=== PATIENT | male | born 1960 | race Caucasian/White ===

== ENCOUNTER 2018-01-25 16:13 | Inpatient (IN) | payer OTHER ==
[2018-01-25] MEDS ORDERED: ACETAMINOPHEN TAB 650MG DOSE (2X325MG) PO (16:30)
[2018-01-25] MEDS ORDERED: GLUCOSE 4 GM CHEW TABLET PO (17:15)
[2018-01-25] MEDS ORDERED: VANCOMYCIN HCL 750 MG, VIAL MATE ADAPTER 1 EACH in D5W 250 ML IV (17:15)
[2018-01-25] MEDS ORDERED: DEXTROSE 50% 50 ML SYRINGE IV (17:15)
[2018-01-25] MEDS ORDERED: GLUCAGON FOR INJ 1 MG VIAL (J1610) SC (17:15)
[2018-01-25] MEDS ORDERED: ALBUTEROL 90 MCG/ACT 8GM HFA INHALER INH (17:15)
[2018-01-25 17:21] LABS: ABG BASE EXCESS -0.7 (-2.0-2.0); ABG O2 SATURATION 95.8 % (95.0-99.0); ABG PARTIAL PRESSURE CO2 50.6 mmHg (35.0-45.0); ABG PARTIAL PRESSURE O2 85.3 mmHg (75.0-100.0); ABG STANDARD HCO3 23.9 MEQ/L (22.0-26.0); ABG TOTAL CO2 27.6 MEQ/L (22.0-29.0); ABG pH (ARTERIAL) 7.329 UNITS (7.350-7.450)
[2018-01-25 17:43] LABS: BASO % 0.1 % (0.0-1.0); EOS % 0.1 % (0.0-3.0); HEMATOCRIT 46.6 % (42.0-52.0); HEMOGLOBIN 15.2 g/dl (13.5-17.5); IMMATURE GRANULOCYTE % 1.4 % (0-3.0); LYMPH # 0.8 10^3/uL (1.5-4.5); LYMPH % 3.3 % (24.0-44.0); MEAN CORPUSCULAR HEMOGLOBIN 28.5 pg (27.0-33.0); MEAN CORPUSCULAR HGB CONC 32.6 g/dl (32.0-36.5); MEAN CORPUSCULAR VOLUME 87.3 fl (80.0-96.0); MONO % 8.8 % (0.0-5.0); NEUTROPHILS # 22.2 10^3/uL (1.8-7.7); NEUTROPHILS % 86.3 % (36.0-66.0); PLATELET COUNT, AUTOMATED 225 10^3/uL (150-450); RED BLOOD COUNT 5.34 10^6/uL (4.30-6.10); RED CELL DISTRIBUTION WIDTH 15.4 % (11.5-14.5); WHITE BLOOD COUNT 25.7 10^3/uL (4.0-10.0)
[2018-01-25] MEDS: VANCOMYCIN HCL 1,000 MG, VIAL MATE ADAPTER 1 EACH in D5W 250 ML IV ×2 (17:47→22:25)
[2018-01-25] MEDS: FUROSEMIDE 40 MG/4 ML VIAL (J1940) IV (17:47)
[2018-01-25 17:52] LABS: BEDSIDE GLUCOSE 158 MG/DL (70-105)
[2018-01-25 18:03] LABS: ESTIMATED AVERAGE GLUCOSE 105 MG/DL (60-110); HEMOGLOBIN A1c 5.3 %
[2018-01-25] MEDS: HumaLOG INSULIN (NovoLOG) PER UNIT SC ×2 (18:03→20:13)
[2018-01-25 18:08] LABS: LACTIC ACID SEPSIS PROTOCOL 1.2 MMOL/L (0.4-2.0)
[2018-01-25 18:11] LABS: ALBUMIN 2.1 GM/DL (3.2-5.2); ALKALINE PHOSPHATASE 89 U/L (45-117); ALT/SGPT 12 U/L (12-78); AST/SGOT 12 U/L (7-37); BILIRUBIN,TOTAL 1.2 MG/DL (0.2-1.0); BLOOD UREA NITROGEN 20 MG/DL (7-18); CALCIUM LEVEL 8.1 MG/DL (8.5-10.1); CARBON DIOXIDE LEVEL 27 MEQ/L (21-32); CHLORIDE LEVEL 103 MEQ/L (98-107); CPK CREATINE PHOSPHOKINASE 51 U/L (39-308); CREATININE FOR GFR 1.47 MG/DL (0.70-1.30); GLUCOSE, FASTING 149 MG/DL (70-100); LDH LACTATE DEHYDROGENASE 184 U/L (87-241); MAGNESIUM LEVEL 1.7 MG/DL (1.8-2.4); POTASSIUM SERUM 4.7 MEQ/L (3.5-5.1); SODIUM LEVEL 137 MEQ/L (136-145); TOTAL PROTEIN 5.6 GM/DL (6.4-8.2); TROPONIN I 0.04 NG/ML (< 0.10)
[2018-01-25 18:14] LABS: CK-MB VALUE MASS 1.6 NG/ML (<3.6); MB/CK RELATIVE INDEX 3.13 (< OR =4); NT-PRO BNP 24597 PG/ML (<125)
[2018-01-25 18:20] LABS: INR 1.31; PROTHROMBIN TIME 16.5 SECONDS (12.1-14.4)
[2018-01-25 18:24] LABS: MONO # 2.3 10^3/uL (0.0-0.8); POSITIVE DIFF POS FLAG
[2018-01-25 19:13] LABS: ANION GAP 7 MEQ/L (8-16)
[2018-01-25] MEDS ORDERED: MAG SULF 1GM/100ML (MAG RUN) 1 GM in APPROPRIATE DILUENT 1 EA IV (19:15)
[2018-01-25] MEDS: IPRATROPIUM 0.5MG/ALBUTEROL 2.5MG INH SOL UD 3ML (DUONEB)(J7620) INH (19:21)
[2018-01-25] MEDS ORDERED: MIDAZOLAM INJ 2 MG/2 ML VIAL (J2250) As Ordered ×3 (19:26→19:27)
[2018-01-25] MEDS ORDERED: FLUMAZENIL 0.5 MG/5 ML VIAL As Ordered (19:26)
[2018-01-25] MEDS ORDERED: LIDOCAINE 1% MDV 20ML VIAL As Ordered ×2 (19:27→20:48)
[2018-01-25] MEDS: CEFEPIME HCL 2 GM in D5W MINI-BAG PLUS 50 ML IV (20:09)
[2018-01-25] MEDS: GABAPENTIN 300 MG CAP PO (20:09)
[2018-01-25] MEDS: NYSTATIN 100,000 UNITS/GM TOPICAL PWD 15 GM TOP (20:10)
[2018-01-25] MEDS: CARVedilol 3.125 MG TAB PO (20:10)
[2018-01-25] MEDS: ENOXAPARIN 150 MG/ML SYR (J1650) SC (20:13)
[2018-01-25 20:15] LABS: BEDSIDE GLUCOSE 172 MG/DL (70-105)
[2018-01-25] MEDS: MAG SULF 1GM/100ML (MAG RUN) 1 GM in APPROPRIATE DILUENT 1 EA IV (20:19)
[2018-01-25] MEDS: LIDOCAINE 1% MDV 20ML VIAL SC (20:50)
[2018-01-25] MEDS: MIDAZOLAM INJ 2 MG/2 ML VIAL (J2250) IV (20:50)
[2018-01-25 21:53] LABS: PH BODY FLUID 7.368 UNITS (NOT ESTABLISHED); SOURCE, BODY FLUID pH PLEURAL
[2018-01-25 21:54] LABS: RBC BODY FLUID 3 10^3/uL (<2)
[2018-01-25 22:04] LABS: APPEARANCE, BODY FLUID HAZY (CLEAR); PLEURAL FL COLOR PALE YELLOW (COLORLESS); SOURCE, BODY FLUID PLEURAL; WBC BODY FLUID 12700 /uL (0-10)
[2018-01-25 22:05] LABS: BF DIFF IF INDICATED? YES (NO); BF MONONUCLEAR CELL % 6.1 % (0-0); BF POLYMORPHONUCLEAR CELL % 93.9 % (0-0)
[2018-01-25 22:33] LABS: AMYLASE, BODY FLUID 15 U/L (NOT ESTABLISHED); CHOLESTEROL, BODY FLUID < 50 MG/DL (NOT ESTABLISHED); LDH, BODY FLUID 279 U/L (NOT ESTABLISHED); SOURCE, BODY FLUID ALBUMIN PLEURAL; SOURCE, BODY FLUID AMYLASE PLEURAL; SOURCE, BODY FLUID CHOL PLEURAL; SOURCE, BODY FLUID GLUCOSE PLEURAL; SOURCE, BODY FLUID LDH PLEURAL; SOURCE, BODY FLUID TOT PROTEIN PLEURAL; SOURCE, BODY FLUID TRIG PLEURAL; TOTAL PROTEIN, BODY FLUID 1.8 G/DL (NOT ESTABLISHED); TRIGLYCERIDE, BODY FLUID 17 MG/DL (NOT ESTABLISHED)
[2018-01-26 00:36] LABS: CPK CREATINE PHOSPHOKINASE 33 U/L (39-308); TROPONIN I 0.04 NG/ML (< 0.10)
[2018-01-26] MEDS: FUROSEMIDE 40 MG/4 ML VIAL (J1940) IV ×4 (00:36→17:31)
[2018-01-26 00:37] LABS: CK-MB VALUE MASS 1.1 NG/ML (<3.6); MB/CK RELATIVE INDEX 3.33 (< OR =4)
[2018-01-26 04:21] LABS: HEMATOCRIT 43.8 % (42.0-52.0); HEMOGLOBIN 14.5 g/dl (13.5-17.5); MEAN CORPUSCULAR HEMOGLOBIN 28.8 pg (27.0-33.0); MEAN CORPUSCULAR HGB CONC 33.1 g/dl (32.0-36.5); MEAN CORPUSCULAR VOLUME 87.1 fl (80.0-96.0); PLATELET COUNT, AUTOMATED 157 10^3/uL (150-450); RED BLOOD COUNT 5.03 10^6/uL (4.30-6.10); RED CELL DISTRIBUTION WIDTH 15.1 % (11.5-14.5); WHITE BLOOD COUNT 19.5 10^3/uL (4.0-10.0)
[2018-01-26 04:52] LABS: ALBUMIN 1.8 GM/DL (3.2-5.2); ALBUMIN/GLOBULIN RATIO 0.46 (1.00-1.93); ALKALINE PHOSPHATASE 67 U/L (45-117); ALT/SGPT 11 U/L (12-78); ANION GAP 7 MEQ/L (8-16); AST/SGOT 14 U/L (7-37); BILIRUBIN,TOTAL 1.1 MG/DL (0.2-1.0); BLOOD UREA NITROGEN 20 MG/DL (7-18); CALCIUM LEVEL 8.1 MG/DL (8.5-10.1); CARBON DIOXIDE LEVEL 27 MEQ/L (21-32); CHLORIDE LEVEL 103 MEQ/L (98-107); CREATININE FOR GFR 1.33 MG/DL (0.70-1.30); GLOMERULAR FILTRATION RATE 58.8 (>56); GLUCOSE, FASTING 136 MG/DL (70-100); POTASSIUM SERUM 4.5 MEQ/L (3.5-5.1); SODIUM LEVEL 137 MEQ/L (136-145); TOTAL PROTEIN 5.7 GM/DL (6.4-8.2)
[2018-01-26] MEDS: PERCOCET 5MG/325MG TAB PO ×3 (04:59→15:14)
[2018-01-26] MEDS: VANCOMYCIN HCL 1,000 MG, VIAL MATE ADAPTER 1 EACH in D5W 250 ML IV ×3 (05:58→22:00)
[2018-01-26] MEDS: HumaLOG INSULIN (NovoLOG) PER UNIT SC ×4 (07:38→20:13)
[2018-01-26] MEDS: CEFEPIME HCL 2 GM in D5W MINI-BAG PLUS 50 ML IV ×2 (07:38→20:19)
[2018-01-26] MEDS ORDERED: SLF 3 ML SYR IV (08:00)
[2018-01-26 08:57] LABS: CK-MB VALUE MASS 1.9 NG/ML (<3.6); CPK CREATINE PHOSPHOKINASE 40 U/L (39-308); MB/CK RELATIVE INDEX 4.75 (< OR =4); TROPONIN I 0.03 NG/ML (< 0.10)
[2018-01-26] MEDS ORDERED: RIVAROXABAN 20 MG TAB (XARELTO) PO (09:00)
[2018-01-26] MEDS ORDERED: ENOXAPARIN 150 MG/ML SYR (J1650) SC (09:00)
[2018-01-26] MEDS: CARVedilol 3.125 MG TAB PO ×2 (09:36→20:19)
[2018-01-26] MEDS: GABAPENTIN 300 MG CAP PO ×2 (09:36→20:19)
[2018-01-26] MEDS: LISINOPRIL *2.5 MG* TAB PO (09:37)
[2018-01-26] MEDS: NYSTATIN 100,000 UNITS/GM TOPICAL PWD 15 GM TOP ×2 (09:38→20:20)
[2018-01-26 12:06] LABS: BEDSIDE GLUCOSE 169 MG/DL (70-105)
[2018-01-26 14:08] LABS: VANCOMYCIN LEVEL TROUGH 15.4 UG/ML (10.0-20.0)
[2018-01-26] MEDS: SLF 3 ML SYR IV ×2 (14:17→20:20)
[2018-01-26 17:10] LABS: BEDSIDE GLUCOSE 138 MG/DL (70-105)
[2018-01-26] MEDS: RIVAROXABAN 20 MG TAB (XARELTO) PO (17:36)
[2018-01-26 19:37] LABS: ABG BASE EXCESS -2.1 (-2.0-2.0); ABG HCO3 25.8 MEQ/L (22.0-26.0); ABG O2 SATURATION 95.8 % (95.0-99.0); ABG PARTIAL PRESSURE CO2 57.7 mmHg (35.0-45.0); ABG PARTIAL PRESSURE O2 84.7 mmHg (75.0-100.0); ABG STANDARD HCO3 22.7 MEQ/L (22.0-26.0); ABG TOTAL CO2 27.6 MEQ/L (22.0-29.0); ABG pH (ARTERIAL) 7.268 UNITS (7.350-7.450)
[2018-01-26 20:00] LABS: BEDSIDE GLUCOSE 152 MG/DL (70-105)
[2018-01-27] MEDS: FUROSEMIDE 40 MG/4 ML VIAL (J1940) IV ×2 (00:23→06:10)
[2018-01-27 04:28] LABS: HEMATOCRIT 43.6 % (42.0-52.0); HEMOGLOBIN 13.5 g/dl (13.5-17.5); MEAN CORPUSCULAR HEMOGLOBIN 28.3 pg (27.0-33.0); MEAN CORPUSCULAR VOLUME 91.4 fl (80.0-96.0); PLATELET COUNT, AUTOMATED 205 10^3/uL (150-450); RED BLOOD COUNT 4.77 10^6/uL (4.30-6.10); RED CELL DISTRIBUTION WIDTH 15.2 % (11.5-14.5); WHITE BLOOD COUNT 14.9 10^3/uL (4.0-10.0)
[2018-01-27 04:49] LABS: ALBUMIN 1.7 GM/DL (3.2-5.2); ALBUMIN/GLOBULIN RATIO 0.43 (1.00-1.93); ALKALINE PHOSPHATASE 75 U/L (45-117); ALT/SGPT 11 U/L (12-78); ANION GAP 6 MEQ/L (8-16); AST/SGOT 10 U/L (7-37); BILIRUBIN,TOTAL 0.6 MG/DL (0.2-1.0); CARBON DIOXIDE LEVEL 30 MEQ/L (21-32); CHLORIDE LEVEL 101 MEQ/L (98-107); CREATININE FOR GFR 1.99 MG/DL (0.70-1.30); GLOMERULAR FILTRATION RATE 36.9 (>56); GLUCOSE, FASTING 139 MG/DL (70-100); MAGNESIUM LEVEL 1.9 MG/DL (1.8-2.4); POTASSIUM SERUM 4.5 MEQ/L (3.5-5.1); SODIUM LEVEL 137 MEQ/L (136-145); TOTAL PROTEIN 5.7 GM/DL (6.4-8.2)
[2018-01-27 04:58] LABS: BLOOD UREA NITROGEN 33 MG/DL (7-18)
[2018-01-27] MEDS: VANCOMYCIN HCL 1,000 MG, VIAL MATE ADAPTER 1 EACH in D5W 250 ML IV ×3 (06:10→20:32)
[2018-01-27] MEDS: SLF 3 ML SYR IV ×3 (06:10→20:32)
[2018-01-27] MEDS: PERCOCET 5MG/325MG TAB PO ×4 (06:17→23:42)
[2018-01-27] MEDS: ALTEPLASE 2 MG/2 ML VIAL (J2997 PER 1MG) XX (08:02)
[2018-01-27 08:41] LABS: BEDSIDE GLUCOSE 218 MG/DL (70-105)
[2018-01-27] MEDS: GABAPENTIN 300 MG CAP PO ×2 (09:33→20:31)
[2018-01-27] MEDS: HumaLOG INSULIN (NovoLOG) PER UNIT SC ×4 (09:33→20:31)
[2018-01-27] MEDS: NYSTATIN 100,000 UNITS/GM TOPICAL PWD 15 GM TOP ×2 (09:34→20:32)
[2018-01-27] MEDS: CARVedilol 3.125 MG TAB PO ×2 (09:34→20:30)
[2018-01-27 12:21] LABS: BEDSIDE GLUCOSE 143 MG/DL (70-105)
[2018-01-27 15:25] LABS: ABG DEVICE NASAL CANN; ABG HCO3 24.3 MEQ/L (22.0-26.0); ABG O2 SATURATION 94.3 % (95.0-99.0); ABG STANDARD HCO3 20.3 MEQ/L (22.0-26.0); ABG TOTAL CO2 26.2 MEQ/L (22.0-29.0)
[2018-01-27 15:28] LABS: ABG pH (ARTERIAL) 7.197 UNITS (7.350-7.450)
[2018-01-27] MEDS: IPRATROPIUM 0.5MG/ALBUTEROL 2.5MG INH SOL UD 3ML (DUONEB)(J7620) INH ×2 (16:00→19:06)
[2018-01-27 16:46] LABS: ABG BASE EXCESS -2.6 (-2.0-2.0); ABG HCO3 25.7 MEQ/L (22.0-26.0); ABG O2 SATURATION 93.9 % (95.0-99.0); ABG PARTIAL PRESSURE CO2 60.2 mmHg (35.0-45.0); ABG PARTIAL PRESSURE O2 73.3 mmHg (75.0-100.0); ABG STANDARD HCO3 22.2 MEQ/L (22.0-26.0); ABG TOTAL CO2 27.5 MEQ/L (22.0-29.0)
[2018-01-27 16:48] LABS: ABG pH (ARTERIAL) 7.248 UNITS (7.350-7.450)
[2018-01-27] MEDS: NS 500 ML IV (16:53)
[2018-01-27] MEDS: NS 1,000 ML IV (17:29)
[2018-01-27 17:34] LABS: BEDSIDE GLUCOSE 173 MG/DL (70-105)
[2018-01-27] MEDS: RIVAROXABAN 20 MG TAB (XARELTO) PO (17:36)
[2018-01-27 20:30] LABS: BEDSIDE GLUCOSE 123 MG/DL (70-105)
[2018-01-27] MEDS: CEFEPIME HCL 2 GM in D5W MINI-BAG PLUS 50 ML IV (20:30)
[2018-01-27 21:54] LABS: VANCOMYCIN LEVEL TROUGH 39.4 UG/ML (10.0-20.0)
[2018-01-28] MEDS: IPRATROPIUM 0.5MG/ALBUTEROL 2.5MG INH SOL UD 3ML (DUONEB)(J7620) INH ×7 (00:04→23:46)
[2018-01-28] MEDS: NS 1,000 ML IV (02:45)
[2018-01-28] MEDS: PERCOCET 5MG/325MG TAB PO ×2 (04:41→23:49)
[2018-01-28 04:46] LABS: BASO % 0.2 % (0.0-1.0); EOS # 0.2 10^3/uL (0.0-0.50); EOS % 2.3 % (0.0-3.0); HEMATOCRIT 42.7 % (42.0-52.0); HEMOGLOBIN 13.5 g/dl (13.5-17.5); IMMATURE GRANULOCYTE % 0.4 % (0-3.0); LYMPH # 0.6 10^3/uL (1.5-4.5); LYMPH % 7.6 % (24.0-44.0); MEAN CORPUSCULAR HGB CONC 31.6 g/dl (32.0-36.5); MEAN CORPUSCULAR VOLUME 88.6 fl (80.0-96.0); MONO % 12.1 % (0.0-5.0); NEUTROPHILS # 6.5 10^3/uL (1.8-7.7); NEUTROPHILS % 77.4 % (36.0-66.0); PLATELET COUNT, AUTOMATED 170 10^3/uL (150-450); RED BLOOD COUNT 4.82 10^6/uL (4.30-6.10); WHITE BLOOD COUNT 8.4 10^3/uL (4.0-10.0)
[2018-01-28 05:12] LABS: ALBUMIN 1.4 GM/DL (3.2-5.2); ALBUMIN/GLOBULIN RATIO 0.34 (1.00-1.93); ALKALINE PHOSPHATASE 74 U/L (45-117); ALT/SGPT 11 U/L (12-78); ANION GAP 8 MEQ/L (8-16); AST/SGOT 13 U/L (7-37); BILIRUBIN,TOTAL 0.5 MG/DL (0.2-1.0); BLOOD UREA NITROGEN 40 MG/DL (7-18); CALCIUM LEVEL 8.1 MG/DL (8.5-10.1); CARBON DIOXIDE LEVEL 27 MEQ/L (21-32); CHLORIDE LEVEL 101 MEQ/L (98-107); CREATININE FOR GFR 2.43 MG/DL (0.70-1.30); GLOMERULAR FILTRATION RATE 29.3 (>56); GLUCOSE, FASTING 97 MG/DL (70-100); MAGNESIUM LEVEL 2.3 MG/DL (1.8-2.4); POTASSIUM SERUM 4.4 MEQ/L (3.5-5.1); SODIUM LEVEL 136 MEQ/L (136-145); TOTAL PROTEIN 5.5 GM/DL (6.4-8.2)
[2018-01-28] MEDS: SLF 3 ML SYR IV ×3 (05:20→20:56)
[2018-01-28] MEDS: FUROSEMIDE 40 MG/4 ML VIAL (J1940) IV (06:11)
[2018-01-28 06:18] LABS: ABG BASE EXCESS -0.2 (-2.0-2.0); ABG HCO3 26.8 MEQ/L (22.0-26.0); ABG PARTIAL PRESSURE O2 74.1 mmHg (75.0-100.0); ABG STANDARD HCO3 24.3 MEQ/L (22.0-26.0); ABG TOTAL CO2 28.4 MEQ/L (22.0-29.0); ABG pH (ARTERIAL) 7.321 UNITS (7.350-7.450)
[2018-01-28] MEDS: HumaLOG INSULIN (NovoLOG) PER UNIT SC ×4 (07:30→21:00)
[2018-01-28] MEDS: SODIUM CHLORIDE HYPERTONIC 3% 15ML NEB SOL INH ×5 (08:00→23:47)
[2018-01-28] MEDS: GABAPENTIN 300 MG CAP PO ×2 (09:34→20:55)
[2018-01-28] MEDS: CARVedilol 3.125 MG TAB PO ×2 (09:34→20:55)
[2018-01-28] MEDS: guaiFENesin ER 600 MG TAB PO ×2 (09:34→20:55)
[2018-01-28] MEDS: NYSTATIN 100,000 UNITS/GM TOPICAL PWD 15 GM TOP ×2 (09:34→20:56)
[2018-01-28 11:29] LABS: VANCOMYCIN RANDOM 28.7 UG/ML
[2018-01-28 11:37] LABS: BEDSIDE GLUCOSE 169 MG/DL (70-105)
[2018-01-28] MEDS ORDERED: VANCOMYCIN HCL 1,000 MG, VIAL MATE ADAPTER 1 EACH in D5W 250 ML IV (12:00)
[2018-01-28 17:34] LABS: BEDSIDE GLUCOSE 126 MG/DL (70-105)
[2018-01-28] MEDS: RIVAROXABAN 20 MG TAB (XARELTO) PO (17:40)
[2018-01-28] MEDS: CEFEPIME HCL 2 GM in D5W MINI-BAG PLUS 50 ML IV (20:55)
[2018-01-28 21:00] LABS: BEDSIDE GLUCOSE 166 MG/DL (70-105)
[2018-01-28 21:44] LABS: VANCOMYCIN RANDOM 28.4 UG/ML
[2018-01-28] MEDS ORDERED: VANCOMYCIN INTERMITTENT/PULSE DOSING BY CLINICAL PHARMACIST PER DOSING PROTOCOL XX (22:00)
[2018-01-28 23:11] LABS: AMORPHOUS SEDIMENT SMALL (NEGATIVE); APPEARANCE, URINE HAZY (CLEAR); BACTERIA, URINE AUTO 1+ (NEGATIVE); BILIRUBIN, URINE AUTO NEGATIVE (NEGATIVE); BLOOD, URINE BLOOD 3+ (NEGATIVE); COLOR, URINE YELLOW (YELLOW); GLUCOSE, URINE (UA) AUTO NEGATIVE (NEGATIVE); KETONE, URINE AUTO NEGATIVE (NEGATIVE); LEUKOCYTE ESTERASE, URINE AUTO TRACE (NEGATIVE); MUCUS, URINE SMALL (NEGATIVE); NITRITE, URINE AUTO NEGATIVE (NEGATIVE); PROTEIN, URINE AUTO 2+ mg/dL (NEGATIVE); RBC, URINE AUTO TNTC /HPF (0-3); SPECIFIC GRAVITY URINE AUTO 1.017 (1.002-1.035); SQUAMOUS EPITHELIAL CELL UR AU 0 /HPF (0-6); WBC, URINE AUTO 32 /HPF (0-3)
[2018-01-29] MEDS: SODIUM CHLORIDE HYPERTONIC 3% 15ML NEB SOL INH ×5 (03:06→20:03)
[2018-01-29] MEDS: IPRATROPIUM 0.5MG/ALBUTEROL 2.5MG INH SOL UD 3ML (DUONEB)(J7620) INH ×5 (03:06→20:03)
[2018-01-29] MEDS: SLF 3 ML SYR IV ×3 (06:00→20:20)
[2018-01-29 06:01] LABS: BASO % 0.3 % (0.0-1.0); EOS # 0.3 10^3/uL (0.0-0.50); HEMATOCRIT 41.6 % (42.0-52.0); HEMOGLOBIN 13.4 g/dl (13.5-17.5); IMMATURE GRANULOCYTE % 0.6 % (0-3.0); LYMPH # 0.6 10^3/uL (1.5-4.5); LYMPH % 6.4 % (24.0-44.0); MEAN CORPUSCULAR HEMOGLOBIN 28.3 pg (27.0-33.0); MEAN CORPUSCULAR HGB CONC 32.2 g/dl (32.0-36.5); MEAN CORPUSCULAR VOLUME 87.8 fl (80.0-96.0); MONO # 1.1 10^3/uL (0.0-0.8); MONO % 12.3 % (0.0-5.0); NEUTROPHILS # 6.9 10^3/uL (1.8-7.7); NEUTROPHILS % 77.4 % (36.0-66.0); PLATELET COUNT, AUTOMATED 182 10^3/uL (150-450); RED BLOOD COUNT 4.74 10^6/uL (4.30-6.10); RED CELL DISTRIBUTION WIDTH 14.7 % (11.5-14.5); WHITE BLOOD COUNT 8.9 10^3/uL (4.0-10.0)
[2018-01-29 06:16] LABS: ALBUMIN 1.6 GM/DL (3.2-5.2); ALBUMIN/GLOBULIN RATIO 0.48 (1.00-1.93); ALKALINE PHOSPHATASE 107 U/L (45-117); ALT/SGPT 13 U/L (12-78); ANION GAP 6 MEQ/L (8-16); AST/SGOT 17 U/L (7-37); BILIRUBIN,TOTAL 0.5 MG/DL (0.2-1.0); BLOOD UREA NITROGEN 46 MG/DL (7-18); CALCIUM LEVEL 7.8 MG/DL (8.5-10.1); CARBON DIOXIDE LEVEL 29 MEQ/L (21-32); CHLORIDE LEVEL 103 MEQ/L (98-107); CREATININE FOR GFR 2.42 MG/DL (0.70-1.30); GLOMERULAR FILTRATION RATE 29.5 (>56); GLUCOSE, FASTING 107 MG/DL (70-100); MAGNESIUM LEVEL 2.3 MG/DL (1.8-2.4); POTASSIUM SERUM 4.6 MEQ/L (3.5-5.1); SODIUM LEVEL 138 MEQ/L (136-145); TOTAL PROTEIN 4.9 GM/DL (6.4-8.2)
[2018-01-29] MEDS: HumaLOG INSULIN (NovoLOG) PER UNIT SC ×4 (09:10→20:29)
[2018-01-29] MEDS: NYSTATIN 100,000 UNITS/GM TOPICAL PWD 15 GM TOP ×2 (09:10→20:20)
[2018-01-29 09:13] LABS: BEDSIDE GLUCOSE 113 MG/DL (70-105)
[2018-01-29] MEDS: guaiFENesin ER 600 MG TAB PO ×2 (09:23→20:19)
[2018-01-29] MEDS: GABAPENTIN 300 MG CAP PO ×2 (09:23→20:19)
[2018-01-29] MEDS: CARVedilol 3.125 MG TAB PO ×2 (09:23→20:19)
[2018-01-29] MEDS ORDERED: BISACODYL 10 MG SUPP PR (10:15)
[2018-01-29] MEDS: MOM 30ML SUSPENSION UDC PO (11:12)
[2018-01-29] MEDS: DOCUSATE SODIUM 100 MG CAP PO ×2 (11:13→20:19)
[2018-01-29 12:23] LABS: BEDSIDE GLUCOSE 155 MG/DL (70-105)
[2018-01-29] MEDS: APIXABAN 5 MG TAB (ELIQUIS) PO ×2 (12:57→20:19)
[2018-01-29 14:18] LABS: ABG BASE EXCESS 1.2 (-2.0-2.0); ABG HCO3 28.4 MEQ/L (22.0-26.0); ABG O2 SATURATION 96.2 % (95.0-99.0); ABG PARTIAL PRESSURE CO2 55.4 mmHg (35.0-45.0); ABG PARTIAL PRESSURE O2 82.2 mmHg (75.0-100.0); ABG STANDARD HCO3 25.5 MEQ/L (22.0-26.0); ABG TOTAL CO2 30.1 MEQ/L (22.0-29.0); ABG pH (ARTERIAL) 7.327 UNITS (7.350-7.450)
[2018-01-29 17:33] LABS: BEDSIDE GLUCOSE 130 MG/DL (70-105)
[2018-01-29] MEDS: CEFEPIME HCL 2 GM in D5W MINI-BAG PLUS 50 ML IV (20:18)
[2018-01-29] MEDS: EUCERIN 120GM CREAM TOP (20:22)
[2018-01-29 20:24] LABS: BEDSIDE GLUCOSE 175 MG/DL (70-105)
[2018-01-30] MEDS: IPRATROPIUM 0.5MG/ALBUTEROL 2.5MG INH SOL UD 3ML (DUONEB)(J7620) INH ×7 (00:27→23:52)
[2018-01-30] MEDS: SODIUM CHLORIDE HYPERTONIC 3% 15ML NEB SOL INH ×3 (00:28→08:35)
[2018-01-30] MEDS: PERCOCET 5MG/325MG TAB PO ×2 (04:05→21:08)
[2018-01-30] MEDS: SLF 3 ML SYR IV ×3 (05:02→21:09)
[2018-01-30 06:23] LABS: BASO % 0.2 % (0.0-1.0); EOS # 0.2 10^3/uL (0.0-0.50); EOS % 2.4 % (0.0-3.0); HEMOGLOBIN 12.5 g/dl (13.5-17.5); IMMATURE GRANULOCYTE % 0.8 % (0-3.0); LYMPH # 0.6 10^3/uL (1.5-4.5); LYMPH % 6.2 % (24.0-44.0); MEAN CORPUSCULAR HEMOGLOBIN 28.1 pg (27.0-33.0); MEAN CORPUSCULAR HGB CONC 32.1 g/dl (32.0-36.5); MEAN CORPUSCULAR VOLUME 87.6 fl (80.0-96.0); MONO # 1.2 10^3/uL (0.0-0.8); MONO % 12.5 % (0.0-5.0); NEUTROPHILS # 7.5 10^3/uL (1.8-7.7); NEUTROPHILS % 77.9 % (36.0-66.0); PLATELET COUNT, AUTOMATED 184 10^3/uL (150-450); RED BLOOD COUNT 4.45 10^6/uL (4.30-6.10); RED CELL DISTRIBUTION WIDTH 14.9 % (11.5-14.5); WHITE BLOOD COUNT 9.6 10^3/uL (4.0-10.0)
[2018-01-30 06:46] LABS: ALBUMIN 1.5 GM/DL (3.2-5.2); ALBUMIN/GLOBULIN RATIO 0.39 (1.00-1.93); ALKALINE PHOSPHATASE 110 U/L (45-117); ALT/SGPT 12 U/L (12-78); ANION GAP 5 MEQ/L (8-16); AST/SGOT 15 U/L (7-37); BILIRUBIN,TOTAL 0.5 MG/DL (0.2-1.0); BLOOD UREA NITROGEN 44 MG/DL (7-18); C REACTIVE PROTEIN QUANTITATIV 5.54 MG/DL (0.00-0.30); CALCIUM LEVEL 8.1 MG/DL (8.5-10.1); CARBON DIOXIDE LEVEL 28 MEQ/L (21-32); CHLORIDE LEVEL 107 MEQ/L (98-107); CREATININE FOR GFR 2.07 MG/DL (0.70-1.30); GLOMERULAR FILTRATION RATE 35.3 (>56); GLUCOSE, FASTING 110 MG/DL (70-100); MAGNESIUM LEVEL 2.2 MG/DL (1.8-2.4); POTASSIUM SERUM 5.1 MEQ/L (3.5-5.1); SODIUM LEVEL 140 MEQ/L (136-145); TOTAL PROTEIN 5.3 GM/DL (6.4-8.2); VANCOMYCIN RANDOM 17.3 UG/ML
[2018-01-30] MEDS: HumaLOG INSULIN (NovoLOG) PER UNIT SC ×4 (07:30→21:00)
[2018-01-30 08:47] LABS: ABG BASE EXCESS 2.5 (-2.0-2.0); ABG HCO3 27.5 MEQ/L (22.0-26.0); ABG O2 SATURATION 97.3 % (95.0-99.0); ABG PARTIAL PRESSURE O2 89.4 mmHg (75.0-100.0); ABG STANDARD HCO3 26.7 MEQ/L (22.0-26.0); ABG TOTAL CO2 28.9 MEQ/L (22.0-29.0); ABG pH (ARTERIAL) 7.414 UNITS (7.350-7.450)
[2018-01-30] MEDS: FUROSEMIDE 100 MG/10 ML VIAL (J1940) IV (08:57)
[2018-01-30] MEDS: EUCERIN 120GM CREAM TOP ×2 (08:57→21:33)
[2018-01-30] MEDS: DOCUSATE SODIUM 100 MG CAP PO ×2 (08:57→21:05)
[2018-01-30] MEDS: CARVedilol 3.125 MG TAB PO ×2 (08:58→21:06)
[2018-01-30] MEDS: guaiFENesin ER 600 MG TAB PO ×2 (08:58→21:06)
[2018-01-30] MEDS: GABAPENTIN 300 MG CAP PO ×2 (08:58→21:07)
[2018-01-30] MEDS: NYSTATIN 100,000 UNITS/GM TOPICAL PWD 15 GM TOP ×2 (08:58→21:32)
[2018-01-30] MEDS: APIXABAN 5 MG TAB (ELIQUIS) PO ×2 (08:58→21:06)
[2018-01-30] MEDS: MOM 30ML SUSPENSION UDC PO (08:58)
[2018-01-30] MEDS: AMIODARONE HCL 150 MG in APPROPRIATE DILUENT 1 EA IV (10:07)
[2018-01-30 11:52] LABS: BEDSIDE GLUCOSE 185 MG/DL (70-105)
[2018-01-30] MEDS: VANCOMYCIN HCL 1,000 MG, VIAL MATE ADAPTER 1 EACH in D5W 250 ML IV (11:55)
[2018-01-30 17:02] LABS: BEDSIDE GLUCOSE 142 MG/DL (70-105)
[2018-01-30] MEDS: CEFEPIME HCL 2 GM in D5W MINI-BAG PLUS 50 ML IV (21:05)
[2018-01-30] MEDS: AMIODARONE 200 MG TAB (PACERONE) PO (21:07)
[2018-01-30 21:21] LABS: BEDSIDE GLUCOSE 180 MG/DL (70-105)
[2018-01-30] MEDS: ONDANSETRON 4MG/2ML VIAL (J2405) IV (21:32)
[2018-01-31] MEDS: IPRATROPIUM 0.5MG/ALBUTEROL 2.5MG INH SOL UD 3ML (DUONEB)(J7620) INH ×5 (03:48→19:19)
[2018-01-31 05:29] LABS: BASO % 0.5 % (0.0-1.0); EOS # 0.3 10^3/uL (0.0-0.50); EOS % 3.5 % (0.0-3.0); HEMATOCRIT 42.2 % (42.0-52.0); HEMOGLOBIN 13.3 g/dl (13.5-17.5); IMMATURE GRANULOCYTE % 0.9 % (0-3.0); LYMPH # 0.7 10^3/uL (1.5-4.5); LYMPH % 7.9 % (24.0-44.0); MEAN CORPUSCULAR HEMOGLOBIN 28.2 pg (27.0-33.0); MEAN CORPUSCULAR HGB CONC 31.5 g/dl (32.0-36.5); MEAN CORPUSCULAR VOLUME 89.4 fl (80.0-96.0); MONO # 1.2 10^3/uL (0.0-0.8); MONO % 14.1 % (0.0-5.0); NEUTROPHILS # 6.2 10^3/uL (1.8-7.7); NEUTROPHILS % 73.1 % (36.0-66.0); PLATELET COUNT, AUTOMATED 179 10^3/uL (150-450); RED BLOOD COUNT 4.72 10^6/uL (4.30-6.10); RED CELL DISTRIBUTION WIDTH 15.1 % (11.5-14.5); WHITE BLOOD COUNT 8.5 10^3/uL (4.0-10.0)
[2018-01-31] MEDS: SLF 3 ML SYR IV ×3 (05:35→20:12)
[2018-01-31 05:43] LABS: ALBUMIN 1.7 GM/DL (3.2-5.2); ALKALINE PHOSPHATASE 118 U/L (45-117); ALT/SGPT 14 U/L (12-78); ANION GAP 5 MEQ/L (8-16); AST/SGOT 14 U/L (7-37); BILIRUBIN,TOTAL 0.5 MG/DL (0.2-1.0); BLOOD UREA NITROGEN 44 MG/DL (7-18); C REACTIVE PROTEIN QUANTITATIV 6.55 MG/DL (0.00-0.30); CALCIUM LEVEL 8.4 MG/DL (8.5-10.1); CARBON DIOXIDE LEVEL 30 MEQ/L (21-32); CHLORIDE LEVEL 106 MEQ/L (98-107); CREATININE FOR GFR 1.99 MG/DL (0.70-1.30); GLOMERULAR FILTRATION RATE 36.9 (>56); GLUCOSE, FASTING 117 MG/DL (70-100); MAGNESIUM LEVEL 2.2 MG/DL (1.8-2.4); POTASSIUM SERUM 5.1 MEQ/L (3.5-5.1); SODIUM LEVEL 141 MEQ/L (136-145); VANCOMYCIN RANDOM 16.3 UG/ML
[2018-01-31] MEDS: HumaLOG INSULIN (NovoLOG) PER UNIT SC ×4 (07:56→20:05)
[2018-01-31] MEDS: APIXABAN 5 MG TAB (ELIQUIS) PO ×2 (08:42→20:10)
[2018-01-31] MEDS: DOCUSATE SODIUM 100 MG CAP PO ×2 (08:42→20:10)
[2018-01-31] MEDS: GABAPENTIN 300 MG CAP PO ×2 (08:42→20:09)
[2018-01-31] MEDS: AMIODARONE 200 MG TAB (PACERONE) PO ×2 (08:43→20:09)
[2018-01-31] MEDS: guaiFENesin ER 600 MG TAB PO ×2 (08:43→20:09)
[2018-01-31] MEDS: CARVedilol 3.125 MG TAB PO ×2 (08:43→20:10)
[2018-01-31] MEDS: EUCERIN 120GM CREAM TOP ×2 (08:44→20:12)
[2018-01-31] MEDS: MOM 30ML SUSPENSION UDC PO (08:44)
[2018-01-31] MEDS: NYSTATIN 100,000 UNITS/GM TOPICAL PWD 15 GM TOP ×2 (08:45→20:11)
[2018-01-31] MEDS: PERCOCET 5MG/325MG TAB PO ×2 (09:50→20:10)
[2018-01-31] MEDS: FUROSEMIDE 100 MG/10 ML VIAL (J1940) IV (10:10)
[2018-01-31] MEDS: VANCOMYCIN HCL 1,000 MG, VIAL MATE ADAPTER 1 EACH in D5W 250 ML IV (10:10)
[2018-01-31] MEDS ORDERED: cefTRIAXone SOD 1 GM in D5W MINI-BAG PLUS 50 ML IV (11:00)
[2018-01-31 12:27] LABS: BEDSIDE GLUCOSE 154 MG/DL (70-105)
[2018-01-31] MEDS: LevoFLOXacin 750 MG TABLET PO (13:08)
[2018-01-31] MEDS: ACETYLCYSTEINE 20% 4 ML VIAL (200MG/ML) INH ×2 (14:24→19:19)
[2018-01-31 17:23] LABS: BEDSIDE GLUCOSE 127 MG/DL (70-105)
[2018-01-31 20:06] LABS: BEDSIDE GLUCOSE 197 MG/DL (70-105)
[2018-02-01] MEDS: IPRATROPIUM 0.5MG/ALBUTEROL 2.5MG INH SOL UD 3ML (DUONEB)(J7620) INH ×6 (00:31→23:51)
[2018-02-01] MEDS: SLF 3 ML SYR IV ×3 (05:12→20:59)
[2018-02-01] MEDS: LevoFLOXacin 750 MG TABLET PO (05:12)
[2018-02-01 05:28] LABS: BASO % 0.3 % (0.0-1.0); EOS # 0.3 10^3/uL (0.0-0.50); EOS % 3.2 % (0.0-3.0); HEMATOCRIT 40.9 % (42.0-52.0); HEMOGLOBIN 12.9 g/dl (13.5-17.5); IMMATURE GRANULOCYTE % 0.8 % (0-3.0); LYMPH # 0.6 10^3/uL (1.5-4.5); LYMPH % 6.3 % (24.0-44.0); MEAN CORPUSCULAR HEMOGLOBIN 27.8 pg (27.0-33.0); MEAN CORPUSCULAR HGB CONC 31.5 g/dl (32.0-36.5); MEAN CORPUSCULAR VOLUME 88.1 fl (80.0-96.0); MONO # 1.2 10^3/uL (0.0-0.8); MONO % 13.3 % (0.0-5.0); NEUTROPHILS # 6.9 10^3/uL (1.8-7.7); NEUTROPHILS % 76.1 % (36.0-66.0); PLATELET COUNT, AUTOMATED 183 10^3/uL (150-450); RED BLOOD COUNT 4.64 10^6/uL (4.30-6.10); RED CELL DISTRIBUTION WIDTH 15.2 % (11.5-14.5); WHITE BLOOD COUNT 9.1 10^3/uL (4.0-10.0)
[2018-02-01 05:47] LABS: ALBUMIN 1.7 GM/DL (3.2-5.2); ALBUMIN/GLOBULIN RATIO 0.39 (1.00-1.93); ALKALINE PHOSPHATASE 118 U/L (45-117); ALT/SGPT 13 U/L (12-78); ANION GAP 6 MEQ/L (8-16); AST/SGOT 11 U/L (7-37); BILIRUBIN,TOTAL 0.5 MG/DL (0.2-1.0); BLOOD UREA NITROGEN 45 MG/DL (7-18); CALCIUM LEVEL 8.7 MG/DL (8.5-10.1); CARBON DIOXIDE LEVEL 32 MEQ/L (21-32); CHLORIDE LEVEL 105 MEQ/L (98-107); GLOMERULAR FILTRATION RATE 36.7 (>56); GLUCOSE, FASTING 127 MG/DL (70-100); MAGNESIUM LEVEL 2.1 MG/DL (1.8-2.4); POTASSIUM SERUM 5.1 MEQ/L (3.5-5.1); SODIUM LEVEL 143 MEQ/L (136-145); TOTAL PROTEIN 6.1 GM/DL (6.4-8.2)
[2018-02-01] MEDS: ACETYLCYSTEINE 20% 4 ML VIAL (200MG/ML) INH ×2 (07:15→20:49)
[2018-02-01] MEDS: MOM 30ML SUSPENSION UDC PO ×2 (09:00→09:03)
[2018-02-01] MEDS: NYSTATIN 100,000 UNITS/GM TOPICAL PWD 15 GM TOP ×2 (09:03→20:58)
[2018-02-01] MEDS: PERCOCET 5MG/325MG TAB PO ×2 (09:03→21:01)
[2018-02-01] MEDS: EUCERIN 120GM CREAM TOP ×2 (09:04→20:58)
[2018-02-01] MEDS: HumaLOG INSULIN (NovoLOG) PER UNIT SC ×4 (09:04→20:59)
[2018-02-01] MEDS: GABAPENTIN 300 MG CAP PO ×2 (09:05→20:58)
[2018-02-01] MEDS: DOCUSATE SODIUM 100 MG CAP PO ×2 (09:05→20:58)
[2018-02-01] MEDS: APIXABAN 5 MG TAB (ELIQUIS) PO ×2 (09:05→20:56)
[2018-02-01] MEDS: AMIODARONE 200 MG TAB (PACERONE) PO ×2 (09:05→20:56)
[2018-02-01] MEDS: guaiFENesin ER 600 MG TAB PO ×2 (09:05→20:57)
[2018-02-01] MEDS: CARVedilol 3.125 MG TAB PO ×2 (09:07→20:57)
[2018-02-01 13:43] LABS: BEDSIDE GLUCOSE 95 MG/DL (70-105)
[2018-02-01] MEDS: FUROSEMIDE 100 MG/10 ML VIAL (J1940) IV (15:18)
[2018-02-01 17:59] LABS: BEDSIDE GLUCOSE 131 MG/DL (70-105)
[2018-02-01 20:09] LABS: BEDSIDE GLUCOSE 375 MG/DL (70-105)
[2018-02-02] MEDS: IPRATROPIUM 0.5MG/ALBUTEROL 2.5MG INH SOL UD 3ML (DUONEB)(J7620) INH ×5 (04:00→20:25)
[2018-02-02 05:46] LABS: BASO % 0.3 % (0.0-1.0); EOS # 0.3 10^3/uL (0.0-0.50); HEMATOCRIT 41.7 % (42.0-52.0); HEMOGLOBIN 12.7 g/dl (13.5-17.5); IMMATURE GRANULOCYTE % 1.3 % (0-3.0); LYMPH # 0.7 10^3/uL (1.5-4.5); LYMPH % 7.3 % (24.0-44.0); MEAN CORPUSCULAR HEMOGLOBIN 27.6 pg (27.0-33.0); MEAN CORPUSCULAR HGB CONC 30.5 g/dl (32.0-36.5); MEAN CORPUSCULAR VOLUME 90.7 fl (80.0-96.0); MONO # 1.3 10^3/uL (0.0-0.8); NEUTROPHILS # 7.4 10^3/uL (1.8-7.7); NEUTROPHILS % 75.1 % (36.0-66.0); PLATELET COUNT, AUTOMATED 168 10^3/uL (150-450); RED CELL DISTRIBUTION WIDTH 15.3 % (11.5-14.5); WHITE BLOOD COUNT 9.9 10^3/uL (4.0-10.0)
[2018-02-02] MEDS: PERCOCET 5MG/325MG TAB PO ×2 (05:54→22:07)
[2018-02-02] MEDS: SLF 3 ML SYR IV ×3 (05:54→20:41)
[2018-02-02] MEDS: LevoFLOXacin 750 MG TABLET PO (05:54)
[2018-02-02] MEDS: ACETYLCYSTEINE 20% 4 ML VIAL (200MG/ML) INH ×2 (07:12→20:25)
[2018-02-02 07:46] LABS: BEDSIDE GLUCOSE 112 MG/DL (70-105)
[2018-02-02] MEDS: HumaLOG INSULIN (NovoLOG) PER UNIT SC ×4 (08:47→20:19)
[2018-02-02] MEDS: CARVedilol 3.125 MG TAB PO ×2 (08:48→20:41)
[2018-02-02] MEDS: EUCERIN 120GM CREAM TOP ×2 (08:48→20:40)
[2018-02-02] MEDS: NYSTATIN 100,000 UNITS/GM TOPICAL PWD 15 GM TOP ×2 (08:48→20:40)
[2018-02-02] MEDS: AMIODARONE 200 MG TAB (PACERONE) PO ×2 (08:48→20:41)
[2018-02-02] MEDS: guaiFENesin ER 600 MG TAB PO ×2 (08:49→20:40)
[2018-02-02] MEDS: DOCUSATE SODIUM 100 MG CAP PO ×2 (08:49→20:13)
[2018-02-02] MEDS: APIXABAN 5 MG TAB (ELIQUIS) PO ×2 (08:49→20:41)
[2018-02-02] MEDS: MOM 30ML SUSPENSION UDC PO (08:49)
[2018-02-02] MEDS: GABAPENTIN 300 MG CAP PO ×2 (08:49→20:40)
[2018-02-02 10:23] LABS: ANION GAP 5 MEQ/L (8-16); BLOOD UREA NITROGEN 47 MG/DL (7-18); CALCIUM LEVEL 8.3 MG/DL (8.5-10.1); CARBON DIOXIDE LEVEL 33 MEQ/L (21-32); CHLORIDE LEVEL 106 MEQ/L (98-107); CREATININE FOR GFR 2.21 MG/DL (0.70-1.30); GLOMERULAR FILTRATION RATE 32.7 (>56); GLUCOSE, FASTING 120 MG/DL (70-100); SODIUM LEVEL 144 MEQ/L (136-145)
[2018-02-02 10:26] LABS: POTASSIUM SERUM 5.9 MEQ/L (3.5-5.1)
[2018-02-02 11:59] LABS: BEDSIDE GLUCOSE 108 MG/DL (70-105)
[2018-02-02] MEDS: SOD POLYSTYRENE SULFONATE SUSP 15 GM/60 ML UD PO (12:15)
[2018-02-02] MEDS: CALCIUM GLUCONATE 1,000 MG in D5W MINI-BAG PLUS 100 ML IV (12:16)
[2018-02-02 17:02] LABS: BEDSIDE GLUCOSE 146 MG/DL (70-105)
[2018-02-02 20:19] LABS: BEDSIDE GLUCOSE 161 MG/DL (70-105)
[2018-02-02 20:20] LABS: ANION GAP 5 MEQ/L (8-16); BLOOD UREA NITROGEN 50 MG/DL (7-18); CALCIUM LEVEL 8.9 MG/DL (8.5-10.1); CARBON DIOXIDE LEVEL 34 MEQ/L (21-32); CHLORIDE LEVEL 105 MEQ/L (98-107); CREATININE FOR GFR 2.26 MG/DL (0.70-1.30); GLOMERULAR FILTRATION RATE 31.9 (>56); GLUCOSE, FASTING 155 MG/DL (70-100); SODIUM LEVEL 144 MEQ/L (136-145)
[2018-02-02 20:21] LABS: POTASSIUM SERUM 5.2 MEQ/L (3.5-5.1)
[2018-02-03 05:13] LABS: BASO % 0.2 % (0.0-1.0); EOS # 0.2 10^3/uL (0.0-0.50); EOS % 2.2 % (0.0-3.0); HEMATOCRIT 39.7 % (42.0-52.0); HEMOGLOBIN 12.3 g/dl (13.5-17.5); IMMATURE GRANULOCYTE % 1.2 % (0-3.0); LYMPH # 0.6 10^3/uL (1.5-4.5); LYMPH % 6.9 % (24.0-44.0); MEAN CORPUSCULAR HEMOGLOBIN 27.6 pg (27.0-33.0); MEAN CORPUSCULAR VOLUME 89.2 fl (80.0-96.0); MONO # 1.1 10^3/uL (0.0-0.8); MONO % 12.2 % (0.0-5.0); NEUTROPHILS # 7.2 10^3/uL (1.8-7.7); NEUTROPHILS % 77.3 % (36.0-66.0); PLATELET COUNT, AUTOMATED 163 10^3/uL (150-450); RED BLOOD COUNT 4.45 10^6/uL (4.30-6.10); RED CELL DISTRIBUTION WIDTH 15.4 % (11.5-14.5); WHITE BLOOD COUNT 9.3 10^3/uL (4.0-10.0)
[2018-02-03] MEDS: LevoFLOXacin 750 MG TABLET PO (05:30)
[2018-02-03] MEDS: SLF 3 ML SYR IV ×3 (05:30→20:53)
[2018-02-03 05:36] LABS: ANION GAP 6 MEQ/L (8-16); BLOOD UREA NITROGEN 44 MG/DL (7-18); CALCIUM LEVEL 8.7 MG/DL (8.5-10.1); CARBON DIOXIDE LEVEL 32 MEQ/L (21-32); CHLORIDE LEVEL 106 MEQ/L (98-107); CREATININE FOR GFR 2.03 MG/DL (0.70-1.30); GLOMERULAR FILTRATION RATE 36.1 (>56); GLUCOSE, FASTING 119 MG/DL (70-100); POTASSIUM SERUM 4.7 MEQ/L (3.5-5.1); SODIUM LEVEL 144 MEQ/L (136-145)
[2018-02-03] MEDS: AMIODARONE 200 MG TAB (PACERONE) PO ×2 (08:05→20:50)
[2018-02-03] MEDS: HumaLOG INSULIN (NovoLOG) PER UNIT SC ×4 (08:05→20:52)
[2018-02-03] MEDS: DOCUSATE SODIUM 100 MG CAP PO ×3 (08:06→20:51)
[2018-02-03] MEDS: CARVedilol 3.125 MG TAB PO ×2 (08:06→20:51)
[2018-02-03] MEDS: GABAPENTIN 300 MG CAP PO ×2 (08:06→20:51)
[2018-02-03] MEDS: guaiFENesin ER 600 MG TAB PO ×2 (08:06→20:51)
[2018-02-03] MEDS: APIXABAN 5 MG TAB (ELIQUIS) PO ×2 (08:06→20:51)
[2018-02-03] MEDS: MOM 30ML SUSPENSION UDC PO ×2 (08:06→08:12)
[2018-02-03] MEDS: EUCERIN 120GM CREAM TOP ×2 (08:07→20:52)
[2018-02-03] MEDS: NYSTATIN 100,000 UNITS/GM TOPICAL PWD 15 GM TOP ×2 (08:07→20:53)
[2018-02-03] MEDS: IPRATROPIUM 0.5MG/ALBUTEROL 2.5MG INH SOL UD 3ML (DUONEB)(J7620) INH ×5 (08:50→23:58)
[2018-02-03 11:52] LABS: BEDSIDE GLUCOSE 111 MG/DL (70-105)
[2018-02-03] MEDS: PATIROMER SORBITEX CALCIUM 8.4 GM POWDER PACKET (VELTASSA) PO ×2 (12:00)
[2018-02-03] MEDS: PERCOCET 5MG/325MG TAB PO ×2 (12:11→19:42)
[2018-02-03] MEDS: FUROSEMIDE 100 MG/10 ML VIAL (J1940) IV (12:49)
[2018-02-03] MEDS: ACETYLCYSTEINE 20% 4 ML VIAL (200MG/ML) INH ×2 (13:41→21:23)
[2018-02-03 16:35] LABS: BEDSIDE GLUCOSE 133 MG/DL (70-105)
[2018-02-03 20:29] LABS: BEDSIDE GLUCOSE 157 MG/DL (70-105)
[2018-02-04] MEDS: IPRATROPIUM 0.5MG/ALBUTEROL 2.5MG INH SOL UD 3ML (DUONEB)(J7620) INH ×5 (04:00→20:00)
[2018-02-04] MEDS: PERCOCET 5MG/325MG TAB PO ×3 (04:21→18:54)
[2018-02-04] MEDS: SLF 3 ML SYR IV ×3 (06:44→21:00)
[2018-02-04] MEDS: LevoFLOXacin 750 MG TABLET PO (06:44)
[2018-02-04 08:01] LABS: BASO % 0.3 % (0.0-1.0); EOS # 0.2 10^3/uL (0.0-0.50); HEMATOCRIT 39.8 % (42.0-52.0); HEMOGLOBIN 12.5 g/dl (13.5-17.5); IMMATURE GRANULOCYTE % 0.8 % (0-3.0); LYMPH # 0.7 10^3/uL (1.5-4.5); MEAN CORPUSCULAR HEMOGLOBIN 27.8 pg (27.0-33.0); MEAN CORPUSCULAR HGB CONC 31.4 g/dl (32.0-36.5); MEAN CORPUSCULAR VOLUME 88.4 fl (80.0-96.0); MONO % 9.5 % (0.0-5.0); NEUTROPHILS # 8.4 10^3/uL (1.8-7.7); NEUTROPHILS % 80.4 % (36.0-66.0); PLATELET COUNT, AUTOMATED 163 10^3/uL (150-450); RED CELL DISTRIBUTION WIDTH 15.4 % (11.5-14.5); WHITE BLOOD COUNT 10.4 10^3/uL (4.0-10.0)
[2018-02-04] MEDS: ACETYLCYSTEINE 20% 4 ML VIAL (200MG/ML) INH ×2 (08:34→20:00)
[2018-02-04 08:35] LABS: ANION GAP 4 MEQ/L (8-16); BLOOD UREA NITROGEN 45 MG/DL (7-18); CALCIUM LEVEL 8.4 MG/DL (8.5-10.1); CARBON DIOXIDE LEVEL 33 MEQ/L (21-32); CHLORIDE LEVEL 106 MEQ/L (98-107); CREATININE FOR GFR 2.05 MG/DL (0.70-1.30); GLOMERULAR FILTRATION RATE 35.7 (>56); GLUCOSE, FASTING 110 MG/DL (70-100); SODIUM LEVEL 143 MEQ/L (136-145)
[2018-02-04 08:42] LABS: POTASSIUM SERUM 5.7 MEQ/L (3.5-5.1)
[2018-02-04] MEDS: HumaLOG INSULIN (NovoLOG) PER UNIT SC ×4 (09:09→20:57)
[2018-02-04] MEDS: DOCUSATE SODIUM 100 MG CAP PO ×2 (09:10→21:22)
[2018-02-04] MEDS: CARVedilol 3.125 MG TAB PO ×2 (09:10→21:23)
[2018-02-04] MEDS: GABAPENTIN 300 MG CAP PO ×2 (09:10→21:21)
[2018-02-04] MEDS: MOM 30ML SUSPENSION UDC PO (09:10)
[2018-02-04] MEDS: AMIODARONE 200 MG TAB (PACERONE) PO ×2 (09:10→21:21)
[2018-02-04] MEDS: guaiFENesin ER 600 MG TAB PO ×2 (09:10→21:22)
[2018-02-04] MEDS: APIXABAN 5 MG TAB (ELIQUIS) PO ×2 (09:10→21:21)
[2018-02-04] MEDS: EUCERIN 120GM CREAM TOP ×2 (09:11→21:21)
[2018-02-04] MEDS: NYSTATIN 100,000 UNITS/GM TOPICAL PWD 15 GM TOP ×3 (09:12→21:20)
[2018-02-04 12:02] LABS: BEDSIDE GLUCOSE 101 MG/DL (70-105)
[2018-02-04] MEDS: PATIROMER SORBITEX CALCIUM 8.4 GM POWDER PACKET (VELTASSA) PO (14:17)
[2018-02-04] MEDS: SOD POLYSTYRENE SULFONATE SUSP 15 GM/60 ML UD PO (14:18)
[2018-02-04] MEDS: CALCIUM GLUCONATE 1,000 MG in D5W MINI-BAG PLUS 100 ML IV (16:34)
[2018-02-04 16:39] LABS: BEDSIDE GLUCOSE 155 MG/DL (70-105)
[2018-02-04 20:26] LABS: ANION GAP 6 MEQ/L (8-16); BLOOD UREA NITROGEN 42 MG/DL (7-18); CALCIUM LEVEL 8.1 MG/DL (8.5-10.1); CARBON DIOXIDE LEVEL 32 MEQ/L (21-32); CHLORIDE LEVEL 105 MEQ/L (98-107); CREATININE FOR GFR 1.96 MG/DL (0.70-1.30); GLOMERULAR FILTRATION RATE 37.6 (>56); GLUCOSE, FASTING 179 MG/DL (70-100); POTASSIUM SERUM 4.6 MEQ/L (3.5-5.1); SODIUM LEVEL 143 MEQ/L (136-145)
[2018-02-04] MEDS: FUROSEMIDE 100 MG/10 ML VIAL (J1940) IV (21:21)
[2018-02-05] MEDS: PERCOCET 5MG/325MG TAB PO ×2 (04:25→21:08)
[2018-02-05] MEDS: LevoFLOXacin 750 MG TABLET PO (05:47)
[2018-02-05] MEDS: SLF 3 ML SYR IV ×3 (05:48→21:08)
[2018-02-05 05:49] LABS: BASO % 0.3 % (0.0-1.0); EOS # 0.2 10^3/uL (0.0-0.50); EOS % 1.8 % (0.0-3.0); HEMATOCRIT 38.4 % (42.0-52.0); IMMATURE GRANULOCYTE % 0.7 % (0-3.0); LYMPH # 0.7 10^3/uL (1.5-4.5); MEAN CORPUSCULAR HEMOGLOBIN 27.5 pg (27.0-33.0); MEAN CORPUSCULAR HGB CONC 31.3 g/dl (32.0-36.5); MEAN CORPUSCULAR VOLUME 88.1 fl (80.0-96.0); MONO % 10.1 % (0.0-5.0); NEUTROPHILS # 7.8 10^3/uL (1.8-7.7); NEUTROPHILS % 80.1 % (36.0-66.0); PLATELET COUNT, AUTOMATED 159 10^3/uL (150-450); RED BLOOD COUNT 4.36 10^6/uL (4.30-6.10); RED CELL DISTRIBUTION WIDTH 15.3 % (11.5-14.5); WHITE BLOOD COUNT 9.7 10^3/uL (4.0-10.0)
[2018-02-05 06:01] LABS: ANION GAP 4 MEQ/L (8-16); BLOOD UREA NITROGEN 40 MG/DL (7-18); CALCIUM LEVEL 8.3 MG/DL (8.5-10.1); CARBON DIOXIDE LEVEL 36 MEQ/L (21-32); CHLORIDE LEVEL 104 MEQ/L (98-107); GLUCOSE, FASTING 110 MG/DL (70-100); POTASSIUM SERUM 4.6 MEQ/L (3.5-5.1); SODIUM LEVEL 144 MEQ/L (136-145)
[2018-02-05] MEDS: IPRATROPIUM 0.5MG/ALBUTEROL 2.5MG INH SOL UD 3ML (DUONEB)(J7620) INH ×5 (07:42→21:00)
[2018-02-05] MEDS: ACETYLCYSTEINE 20% 4 ML VIAL (200MG/ML) INH ×2 (07:43→21:00)
[2018-02-05] MEDS: GABAPENTIN 300 MG CAP PO ×2 (08:50→21:01)
[2018-02-05] MEDS: guaiFENesin ER 600 MG TAB PO ×2 (08:50→21:01)
[2018-02-05] MEDS: CARVedilol 3.125 MG TAB PO ×2 (08:50→21:02)
[2018-02-05] MEDS: APIXABAN 5 MG TAB (ELIQUIS) PO ×2 (08:50→21:01)
[2018-02-05] MEDS: DOCUSATE SODIUM 100 MG CAP PO ×2 (08:50→21:01)
[2018-02-05] MEDS: AMIODARONE 200 MG TAB (PACERONE) PO ×2 (08:50→21:02)
[2018-02-05] MEDS: EUCERIN 120GM CREAM TOP ×2 (08:51→21:09)
[2018-02-05] MEDS: HumaLOG INSULIN (NovoLOG) PER UNIT SC ×4 (08:51→21:00)
[2018-02-05] MEDS: MOM 30ML SUSPENSION UDC PO (08:51)
[2018-02-05] MEDS: NYSTATIN 100,000 UNITS/GM TOPICAL PWD 15 GM TOP ×2 (08:52→21:03)
[2018-02-05 12:06] LABS: BEDSIDE GLUCOSE 113 MG/DL (70-105)
[2018-02-05] MEDS: PATIROMER SORBITEX CALCIUM 8.4 GM POWDER PACKET (VELTASSA) PO (12:12)
[2018-02-05 17:24] LABS: BEDSIDE GLUCOSE 146 MG/DL (70-105)
[2018-02-05] MEDS: FUROSEMIDE 100 MG/10 ML VIAL (J1940) IV (17:32)
[2018-02-05 20:30] LABS: BEDSIDE GLUCOSE 166 MG/DL (70-105)
[2018-02-06] MEDS: PERCOCET 5MG/325MG TAB PO ×2 (03:59→20:06)
[2018-02-06] MEDS: IPRATROPIUM 0.5MG/ALBUTEROL 2.5MG INH SOL UD 3ML (DUONEB)(J7620) INH ×7 (04:18→23:11)
[2018-02-06] MEDS: LevoFLOXacin 750 MG TABLET PO (05:53)
[2018-02-06] MEDS: SLF 3 ML SYR IV ×3 (05:53→22:00)
[2018-02-06 06:50] LABS: BASO % 0.3 % (0.0-1.0); EOS # 0.2 10^3/uL (0.0-0.50); EOS % 1.6 % (0.0-3.0); HEMATOCRIT 37.4 % (42.0-52.0); HEMOGLOBIN 11.6 g/dl (13.5-17.5); IMMATURE GRANULOCYTE % 0.7 % (0-3.0); LYMPH # 0.8 10^3/uL (1.5-4.5); LYMPH % 7.9 % (24.0-44.0); MEAN CORPUSCULAR HEMOGLOBIN 27.6 pg (27.0-33.0); MONO # 1.1 10^3/uL (0.0-0.8); MONO % 11.1 % (0.0-5.0); NEUTROPHILS # 7.7 10^3/uL (1.8-7.7); NEUTROPHILS % 78.4 % (36.0-66.0); PLATELET COUNT, AUTOMATED 144 10^3/uL (150-450); RED CELL DISTRIBUTION WIDTH 15.2 % (11.5-14.5); WHITE BLOOD COUNT 9.8 10^3/uL (4.0-10.0)
[2018-02-06 07:11] LABS: ANION GAP 5 MEQ/L (8-16); BLOOD UREA NITROGEN 39 MG/DL (7-18); CALCIUM LEVEL 8.3 MG/DL (8.5-10.1); CARBON DIOXIDE LEVEL 35 MEQ/L (21-32); CHLORIDE LEVEL 104 MEQ/L (98-107); CREATININE FOR GFR 1.94 MG/DL (0.70-1.30); GLUCOSE, FASTING 100 MG/DL (70-100); POTASSIUM SERUM 4.5 MEQ/L (3.5-5.1); SODIUM LEVEL 144 MEQ/L (136-145)
[2018-02-06] MEDS: ACETYLCYSTEINE 20% 4 ML VIAL (200MG/ML) INH ×2 (07:29→19:35)
[2018-02-06] MEDS: HumaLOG INSULIN (NovoLOG) PER UNIT SC ×4 (07:30→21:00)
[2018-02-06] MEDS: APIXABAN 5 MG TAB (ELIQUIS) PO ×2 (09:26→20:04)
[2018-02-06] MEDS: guaiFENesin ER 600 MG TAB PO ×2 (09:26→20:03)
[2018-02-06] MEDS: CARVedilol 3.125 MG TAB PO ×2 (09:26→20:04)
[2018-02-06] MEDS: MOM 30ML SUSPENSION UDC PO (09:26)
[2018-02-06] MEDS: AMIODARONE 200 MG TAB (PACERONE) PO ×2 (09:26→20:04)
[2018-02-06] MEDS: EUCERIN 120GM CREAM TOP ×2 (09:27→20:13)
[2018-02-06] MEDS: GABAPENTIN 300 MG CAP PO ×2 (09:27→20:04)
[2018-02-06] MEDS: NYSTATIN 100,000 UNITS/GM TOPICAL PWD 15 GM TOP ×2 (09:27→21:00)
[2018-02-06] MEDS: DOCUSATE SODIUM 100 MG CAP PO ×2 (09:27→20:04)
[2018-02-06] MEDS: FUROSEMIDE 100 MG/10 ML VIAL (J1940) IV ×2 (11:24→17:31)
[2018-02-06 11:27] LABS: BEDSIDE GLUCOSE 141 MG/DL (70-105)
[2018-02-06] MEDS: PATIROMER SORBITEX CALCIUM 8.4 GM POWDER PACKET (VELTASSA) PO (12:31)
[2018-02-06 16:34] LABS: BEDSIDE GLUCOSE 111 MG/DL (70-105)
[2018-02-06 21:40] LABS: BEDSIDE GLUCOSE 226 MG/DL (70-105)
[2018-02-07] MEDS: IPRATROPIUM 0.5MG/ALBUTEROL 2.5MG INH SOL UD 3ML (DUONEB)(J7620) INH ×6 (03:11→23:28)
[2018-02-07] MEDS: LevoFLOXacin 750 MG TABLET PO (05:42)
[2018-02-07] MEDS: SLF 3 ML SYR IV ×3 (05:43→21:39)
[2018-02-07] MEDS: PERCOCET 5MG/325MG TAB PO ×3 (05:48→21:37)
[2018-02-07 06:57] LABS: ANION GAP 6 MEQ/L (8-16); BLOOD UREA NITROGEN 38 MG/DL (7-18); CALCIUM LEVEL 8.1 MG/DL (8.5-10.1); CARBON DIOXIDE LEVEL 35 MEQ/L (21-32); CHLORIDE LEVEL 103 MEQ/L (98-107); CREATININE FOR GFR 1.79 MG/DL (0.70-1.30); GLOMERULAR FILTRATION RATE 41.7 (>56); GLUCOSE, FASTING 101 MG/DL (70-100); POTASSIUM SERUM 4.2 MEQ/L (3.5-5.1); SODIUM LEVEL 144 MEQ/L (136-145)
[2018-02-07] MEDS: HumaLOG INSULIN (NovoLOG) PER UNIT SC ×4 (07:30→21:00)
[2018-02-07] MEDS: ACETYLCYSTEINE 20% 4 ML VIAL (200MG/ML) INH ×2 (07:53→19:38)
[2018-02-07] MEDS: DOCUSATE SODIUM 100 MG CAP PO ×2 (09:00→21:37)
[2018-02-07] MEDS: EUCERIN 120GM CREAM TOP ×2 (09:00→21:38)
[2018-02-07] MEDS: MOM 30ML SUSPENSION UDC PO (09:00)
[2018-02-07] MEDS: NYSTATIN 100,000 UNITS/GM TOPICAL PWD 15 GM TOP ×2 (09:34→21:39)
[2018-02-07] MEDS: APIXABAN 5 MG TAB (ELIQUIS) PO ×2 (09:35→21:37)
[2018-02-07] MEDS: GABAPENTIN 300 MG CAP PO ×2 (09:35→21:37)
[2018-02-07] MEDS: guaiFENesin ER 600 MG TAB PO ×2 (09:35→21:36)
[2018-02-07] MEDS: FUROSEMIDE 100 MG/10 ML VIAL (J1940) IV ×2 (09:35→17:41)
[2018-02-07] MEDS: AMIODARONE 200 MG TAB (PACERONE) PO ×2 (09:36→21:38)
[2018-02-07] MEDS: CARVedilol 3.125 MG TAB PO ×2 (09:36→21:37)
[2018-02-07 12:07] LABS: BEDSIDE GLUCOSE 172 MG/DL (70-105)
[2018-02-07 16:56] LABS: BEDSIDE GLUCOSE 106 MG/DL (70-105)
[2018-02-07 21:00] LABS: BEDSIDE GLUCOSE 161 MG/DL (70-105)
[2018-02-08] MEDS: IPRATROPIUM 0.5MG/ALBUTEROL 2.5MG INH SOL UD 3ML (DUONEB)(J7620) INH ×5 (04:00→20:08)
[2018-02-08] MEDS: LevoFLOXacin 750 MG TABLET PO (04:32)
[2018-02-08] MEDS: PERCOCET 5MG/325MG TAB PO ×3 (04:32→20:56)
[2018-02-08] MEDS: SLF 3 ML SYR IV ×3 (04:36→21:22)
[2018-02-08] MEDS: HumaLOG INSULIN (NovoLOG) PER UNIT SC ×4 (07:30→21:00)
[2018-02-08 07:46] LABS: ANION GAP 5 MEQ/L (8-16); BLOOD UREA NITROGEN 35 MG/DL (7-18); CALCIUM LEVEL 7.9 MG/DL (8.5-10.1); CARBON DIOXIDE LEVEL 37 MEQ/L (21-32); CHLORIDE LEVEL 103 MEQ/L (98-107); CREATININE FOR GFR 1.85 MG/DL (0.70-1.30); GLOMERULAR FILTRATION RATE 40.2 (>56); GLUCOSE, FASTING 89 MG/DL (70-100); POTASSIUM SERUM 4.2 MEQ/L (3.5-5.1); SODIUM LEVEL 145 MEQ/L (136-145)
[2018-02-08] MEDS: ACETYLCYSTEINE 20% 4 ML VIAL (200MG/ML) INH ×2 (07:46→20:09)
[2018-02-08] MEDS: NYSTATIN 100,000 UNITS/GM TOPICAL PWD 15 GM TOP ×2 (09:00→20:50)
[2018-02-08] MEDS: MOM 30ML SUSPENSION UDC PO (09:00)
[2018-02-08] MEDS: EUCERIN 120GM CREAM TOP ×2 (09:00→20:51)
[2018-02-08] MEDS: FUROSEMIDE 100 MG/10 ML VIAL (J1940) IV ×2 (09:00→17:00)
[2018-02-08] MEDS: DOCUSATE SODIUM 100 MG CAP PO ×2 (09:00→20:50)
[2018-02-08] MEDS: APIXABAN 5 MG TAB (ELIQUIS) PO ×2 (10:03→20:50)
[2018-02-08] MEDS: guaiFENesin ER 600 MG TAB PO ×2 (10:03→20:50)
[2018-02-08] MEDS: GABAPENTIN 300 MG CAP PO ×2 (10:04→20:50)
[2018-02-08] MEDS: CARVedilol 3.125 MG TAB PO ×2 (10:04→20:54)
[2018-02-08] MEDS: AMIODARONE 200 MG TAB (PACERONE) PO ×2 (10:05→20:54)
[2018-02-08 11:30] LABS: BEDSIDE GLUCOSE 126 MG/DL (70-105)
[2018-02-08 16:34] LABS: BEDSIDE GLUCOSE 165 MG/DL (70-105)
[2018-02-08 21:07] LABS: BEDSIDE GLUCOSE 146 MG/DL (70-105)
[2018-02-09] MEDS: IPRATROPIUM 0.5MG/ALBUTEROL 2.5MG INH SOL UD 3ML (DUONEB)(J7620) INH ×7 (00:51→23:40)
[2018-02-09] MEDS: LevoFLOXacin 750 MG TABLET PO (05:04)
[2018-02-09] MEDS: SLF 3 ML SYR IV ×3 (05:05→21:59)
[2018-02-09] MEDS: PERCOCET 5MG/325MG TAB PO ×3 (05:05→22:40)
[2018-02-09 07:15] LABS: ANION GAP 4 MEQ/L (8-16); BLOOD UREA NITROGEN 34 MG/DL (7-18); CALCIUM LEVEL 7.9 MG/DL (8.5-10.1); CARBON DIOXIDE LEVEL 38 MEQ/L (21-32); CHLORIDE LEVEL 102 MEQ/L (98-107); CREATININE FOR GFR 1.96 MG/DL (0.70-1.30); GLOMERULAR FILTRATION RATE 37.6 (>56); GLUCOSE, FASTING 95 MG/DL (70-100); POTASSIUM SERUM 4.4 MEQ/L (3.5-5.1); SODIUM LEVEL 144 MEQ/L (136-145)
[2018-02-09] MEDS: ACETYLCYSTEINE 20% 4 ML VIAL (200MG/ML) INH ×2 (07:25→19:55)
[2018-02-09] MEDS: HumaLOG INSULIN (NovoLOG) PER UNIT SC ×4 (07:30→22:01)
[2018-02-09] MEDS: MOM 30ML SUSPENSION UDC PO ×2 (09:00→09:39)
[2018-02-09] MEDS: FUROSEMIDE 100 MG/10 ML VIAL (J1940) IV (09:38)
[2018-02-09] MEDS: APIXABAN 5 MG TAB (ELIQUIS) PO ×2 (09:40→20:17)
[2018-02-09] MEDS: guaiFENesin ER 600 MG TAB PO ×2 (09:40→20:17)
[2018-02-09] MEDS: AMIODARONE 200 MG TAB (PACERONE) PO ×2 (09:40→20:17)
[2018-02-09] MEDS: DOCUSATE SODIUM 100 MG CAP PO ×2 (09:40→20:17)
[2018-02-09] MEDS: GABAPENTIN 300 MG CAP PO ×2 (09:40→20:17)
[2018-02-09] MEDS: CARVedilol 3.125 MG TAB PO ×2 (09:40→20:18)
[2018-02-09] MEDS: NYSTATIN 100,000 UNITS/GM TOPICAL PWD 15 GM TOP ×2 (09:42→20:20)
[2018-02-09] MEDS: EUCERIN 120GM CREAM TOP ×2 (09:42→20:20)
[2018-02-09] MEDS ORDERED: TORSEMIDE 20 MG TAB PO (11:00)
[2018-02-09 11:46] LABS: BEDSIDE GLUCOSE 117 MG/DL (70-105)
[2018-02-09 16:35] LABS: BEDSIDE GLUCOSE 90 MG/DL (70-105)
[2018-02-09] MEDS: TORSEMIDE 20 MG TAB PO (18:11)
[2018-02-09 22:00] LABS: BEDSIDE GLUCOSE 157 MG/DL (70-105)
[2018-02-10] MEDS: IPRATROPIUM 0.5MG/ALBUTEROL 2.5MG INH SOL UD 3ML (DUONEB)(J7620) INH ×3 (04:13→11:39)
[2018-02-10] MEDS: SLF 3 ML SYR IV ×2 (05:30→12:51)
[2018-02-10] MEDS: ACETYLCYSTEINE 20% 4 ML VIAL (200MG/ML) INH (07:51)
[2018-02-10] MEDS: MOM 30ML SUSPENSION UDC PO (09:00)
[2018-02-10 09:04] LABS: BEDSIDE GLUCOSE 155 MG/DL (70-105)
[2018-02-10] MEDS: TORSEMIDE 20 MG TAB PO (11:09)
[2018-02-10] MEDS: guaiFENesin ER 600 MG TAB PO (11:10)
[2018-02-10] MEDS: AMIODARONE 200 MG TAB (PACERONE) PO (11:10)
[2018-02-10] MEDS: APIXABAN 5 MG TAB (ELIQUIS) PO (11:10)
[2018-02-10] MEDS: GABAPENTIN 300 MG CAP PO ×2 (11:10→12:50)
[2018-02-10] MEDS: DOCUSATE SODIUM 100 MG CAP PO (11:10)
[2018-02-10] MEDS: CARVedilol 3.125 MG TAB PO (11:11)
[2018-02-10] MEDS: HumaLOG INSULIN (NovoLOG) PER UNIT SC ×2 (11:12→12:50)
[2018-02-10] MEDS: EUCERIN 120GM CREAM TOP (11:13)
[2018-02-10] MEDS: NYSTATIN 100,000 UNITS/GM TOPICAL PWD 15 GM TOP (11:14)
[2018-02-10] MEDS: PERCOCET 5MG/325MG TAB PO (15:00)
[2018-02-11 20:21] LABS: BEDSIDE GLUCOSE 144 MG/DL (70-105)
== END 2018-02-10 16:30 | disposition home or self-care (01) | DRG 139 ==
LOC: M PCU 01-31 17:55 → M ICU 16:13 → M MS5PR 02-05 18:34
PROC: 0W9930Z Drainage of Right Pleural Cavity with Drainage Device, Percutaneous Approach (ICD-10-PCS; principal; 2018-01-25)
PROC: 3E0L3GC Introduction of Other Therapeutic Substance into Pleural Cavity, Percutaneous Approach (ICD-10-PCS; 2018-01-27)
DX: J13 Pneumonia due to Streptococcus pneumoniae (principal); J96.01 Acute respiratory failure with hypoxia; I50.23 Acute on chronic systolic (congestive) heart failure; N17.9 Acute kidney failure, unspecified; J90 Pleural effusion, not elsewhere classified; E11.51 Type 2 diabetes mellitus with diabetic peripheral angiopathy without gangrene; E87.2 Acidosis; L03.115 Cellulitis of right lower limb; N18.3 Chronic kidney disease, stage 3 (moderate); I27.20 Pulmonary hypertension, unspecified; I13.0 Hypertensive heart and chronic kidney disease with heart failure and stage 1 through stage 4 chronic kidney disease, or unspecified chronic kidney disease; E66.01 Morbid (severe) obesity due to excess calories; Z68.42 Body mass index [BMI] 45.0-49.9, adult; I47.1 Supraventricular tachycardia; I48.91 Unspecified atrial fibrillation; E87.5 Hyperkalemia; I83.208 Varicose veins of unspecified lower extremity with both ulcer of other part of lower extremity and inflammation; J44.9 Chronic obstructive pulmonary disease, unspecified; G47.33 Obstructive sleep apnea (adult) (pediatric); Z95.0 Presence of cardiac pacemaker; Z79.899 Other long term (current) drug therapy; Z88.8 Allergy status to other drugs, medicaments and biological substances; F17.210 Nicotine dependence, cigarettes, uncomplicated; Z79.01 Long term (current) use of anticoagulants